=== PATIENT | female | born 1985 | race American Indian/Alaskan Native ===

== ENCOUNTER 2020-09-26 17:26 | Emergency (ER) | payer MEDICAID ==
[2020-09-26 17:55] VITALS: BP 161/94
--- NOTE | 2020-09-27 04:16 | Emergency Department Report ---
ED Recheck HPI - General Chief Complaint: Medical Clearance Stated Complaint: EMERGENCY MED BRIDGE Time Seen by Provider: 09/27/20 04:10 Source: patient Mode of arrival: Ambulatory Limitations: No Limitations - History of Present Illness Initial Comments: 35-year-old female, history of PTSD, presents to ED requesting medication refill on her Effexor. Patient states she has been out for approximately 4 days. Patient denies any SI or HI. MD Complaint: medication refill request -: days(s) (4) Returns Today for: request for prescription Context: ran out of medication Associated Symptoms: none - Related Data Previous Rx's Medication Instructions Recorded Last Taken Type Venlafaxine HCl [Effexor Xr] 150 mg PO QDAY #30 cap.er.24h 09/27/20 Unknown Rx Allergies Allergy/AdvReac Type Severity Reaction Status Date / Time cashew nut Allergy Swelling Verified 09/26/20 17:47 cat dander Allergy Hives Verified 09/26/20 17:47 wax on fruit Allergy Swelling Uncoded 09/26/20 17:47 ED Review of Systems ROS: Stated complaint: EMERGENCY MED BRIDGE Other details as noted in HPI Comment: All other systems reviewed and negative Psychiatric: denies: homicidal thoughts, suicidal thoughts ED Past Medical Hx - Past Medical History Previous Medical History?: Yes Additional medical history: PTSD - Surgical History Past Surgical History?: Yes Additional Surgical History: right hand surgery for artery repair - Social History Smoking Status: Never Smoker - Medications Home Medications: Home Medications Medication Instructions Recorded Confirmed Last Taken Type Venlafaxine HCl [Effexor Xr] 150 mg PO QDAY #30 cap.er.24h 09/27/20 Unknown Rx ED Physical Exam - General Limitations: No Limitations General appearance: alert, in no apparent distress - Head Head exam: Present: atraumatic, normocephalic - Eye Eye exam: Present: normal appearance, EOMI - ENT ENT exam: Present: mucous membranes moist - Respiratory Respiratory exam: Present: normal lung sounds bilaterally. Absent: respiratory distress - Cardiovascular Cardiovascular Exam: Present: regular rate, normal rhythm - GI/Abdominal GI/Abdominal exam: Absent: distended - Extremities Exam Extremities exam: Present: normal inspection - Neurological Exam Neurological exam: Present: alert, oriented X3 - Psychiatric Psychiatric exam: Present: normal affect, normal mood - Skin Skin exam: Present: warm, dry, intact, normal color ED Course Vital Signs 09/26/20 17:47 Temperature 98.4 F Pulse Rate 117 H Respiratory 18 Rate Blood Pressure 161/94 O2 Sat by Pulse 99 Oximetry Critical care attestation.: If time is entered above; I have spent that time in minutes in the direct care of this critically ill patient, excluding procedure time. ED Disposition Clinical Impression: Medication refill Disposition: DC-01 TO HOME OR SELFCARE Is pt being admited?: No Condition: Stable Prescriptions: Venlafaxine HCl [Effexor Xr] 150 mg PO QDAY #30 cap.er.24h Referrals: PRIMARY CARE, [Primary Care Provider] - 3-5 Days [facility] [Outside] - 3-5 Days Time of Disposition: 04:16
== END 2020-09-27 04:26 | disposition home or self-care (01) ==
LOC: ED 17:26
DX: F43.10 Post-traumatic stress disorder, unspecified (principal); Z76.0 Encounter for issue of repeat prescription; Z98.890 Other specified postprocedural states; Z79.899 Other long term (current) drug therapy; Z88.8 Allergy status to other drugs, medicaments and biological substances
CPT/HCPCS: 99282